=== PATIENT | male | born 1990 | race Two or more races ===

== ENCOUNTER 2017-09-08 10:32 | Emergency (ER) | payer SELFPAY ==
[~2017-09-08] VITALS: Ht 167.6 cm; Wt 93.0 kg
[2017-09-08 10:49] VITALS: BP 155/82
--- NOTE | 2017-09-08 11:07 | Emergency Room Report ---
History of Present Illness General Chief Complaint: Male Urogenital Problems Source: Patient Present Illness HPI 27-year-old male walks in with one day of dark-colored urine no dysuria, polyuria Associated with bilateral lower back pain Exerted himself this past weekend - "multiple days of intercourse" No other recent heavy cardioactive or weight lifting Allergies: Coded Allergies: No Known Allergies (Unverified , 09/08/17) Patient History Past Medical History: none Past Surgical History: none Pertinent Family History: none Social History: Denies: smoking, alcohol use, drug use Immunizations: UTD Reviewed Nursing Documentation: PMH: Agreed, PSxH: Agreed Nursing Documentation-PMH Past Medical History: No History, Except For Review of Systems All Other Systems: negative except mentioned in HPI Physical Exam Vital Signs Date Time Temp Pulse Resp B/P (MAP) Pulse Ox O2 Delivery O2 Flow Rate FiO2 09/08/17 10:41 98.9 82 16 155/82 100 Room Air 99.0 Sp02 EP Interpretation: reviewed, normal General Appearance: normal inspection, well appearing, no apparent distress, alert, GCS 15, non-toxic Head: normocephalic, atraumatic Eyes: bilateral eye PERRL, bilateral eye EOMI ENT: normal ENT inspection, hearing grossly normal, normal pharynx, no angioedema, normal voice, TMs + canals normal, uvula midline, moist mucus membranes Neck: normal inspection, full range of motion, supple, thyroid normal, no meningismus, no bony tend Respiratory: normal inspection, lungs clear, normal breath sounds, no rhonchi, no respiratory distress, no retraction, no accessory muscle use, no wheezing, speaking full sentences Cardiovascular #1: regular rate, rhythm, no edema, no JVD, normal capillary refill Gastrointestinal: normal inspection, normal bowel sounds, non tender, soft, no mass, no peritonitis, non-distended, no guarding, no hernia, no pulsatile mass Genitourinary: no CVA tenderness Musculoskeletal: normal inspection, back normal, normal range of motion, no calf tenderness, pelvis stable, John's Sign negative Neurologic: normal inspection, alert, oriented x3, responsive, [employer] III-XII nml as tested, motor strength/tone normal, cerebellar normal, normal gait, speech normal Psychiatric: normal inspection, judgement/insight normal, mood/affect normal, no suicidal/homicidal ideation, no delusions Skin: normal inspection, normal color, no rash Lymphatic: normal inspection, no adenopathy Medical Decision Making Diagnostic Impression: Primary Impression: Abnormal urogenital findings Additional Impressions: Hematuria Qualified Codes: R31.9 - Hematuria, unspecified UTI (urinary tract infection) Qualified Codes: N39.0 - Urinary tract infection, site not specified; R31.9 - Hematuria, unspecified ER Course 27YOM with hematuria UA with hematuria, WBCs Given recent intercourse, will tx for G&C Ceftriaxone IM and 1 week of doxy Advised patient to d/w partner Close PMD followup DC Last Vital Signs Date Time Temp Pulse Resp B/P (MAP) Pulse Ox O2 Delivery O2 Flow Rate FiO2 09/08/17 10:49 98.9 82 16 155/82 100 Room Air 98.9 Status: improved Disposition: HOME, SELF-CARE ROSARIO PITTMAN M.D. Sep 08, 2017 11:06
[2017-09-08 11:12] LABS: APPEARANCE,URINE VERY CLOUDY; BILIRUBIN, URINE NEGATIVE (NEGATIVE); GLUCOSE, URINE (UA) NEGATIVE (NEGATIVE); KETONES,URINE NEGATIVE (NEGATIVE); LEUKOCYTE ESTERASE ,URINE 1+ (NEGATIVE); NITRITE,URINE NEGATIVE (NEGATIVE); PH,URINE 5 (4.5-8.0); PROTEIN,URINE 3+ (NEGATIVE); UROBILINOGEN,URINE NORMAL MG/DL (0.0-1.0)
[2017-09-08 11:14] LABS: COLOR,URINE BROWN
[2017-09-08] MEDS ORDERED: DOXYCYCLINE MO100 MG ORAL (11:37)
[2017-09-08] MEDS ORDERED: Lidocaine 1% MPF 10mg/ml 5ml INJ ONE (11:45)
[2017-09-08 12:00] VITALS: BP 113/61
== END 2017-09-08 12:00 | disposition home or self-care (01) ==
LOC: EMR 11:50
DX: R31.9 Hematuria, unspecified (principal); N39.0 Urinary tract infection, site not specified
CPT/HCPCS: 81003; 96372; 99283; J0696